=== PATIENT | female | born 1955 | race Caucasian/White ===

== ENCOUNTER 2016-10-04 11:32 | Emergency (ER) | payer OTHER ==
[~2016-10-04] VITALS: Ht 182.9 cm; Wt 113.4 kg
[2016-10-04 11:45] VITALS: BP 122/82
--- NOTE | 2016-10-04 12:09 | NUR ---
XRAY AT BEDSIDE
[2016-10-04] MEDS ORDERED: HYDROCODONE/APAP 5/325MG 1 EACH TABLET PO ONE (12:30)
[2016-10-04] MEDS ORDERED: HYDROCODONE/APAP 5/325MG 1 EACH TABLET ONE (12:37)
== END 2016-10-04 13:24 | disposition home or self-care (01) ==
LOC: ER 11:33
DX: S86.919A Strain of unspecified muscle(s) and tendon(s) at lower leg level, unspecified leg, initial encounter (principal); I10 Essential (primary) hypertension; E66.9 Obesity, unspecified; W01.0XXA Fall on same level from slipping, tripping and stumbling without subsequent striking against object, initial encounter; Y92.89 Other specified places as the place of occurrence of the external cause; Y93.89 Activity, other specified; Y99.8 Other external cause status
CPT/HCPCS: 73564-TC; A4606; Z7610

== ENCOUNTER 2016-12-16 11:04 | Emergency (ER) | payer OTHER ==
[~2016-12-16] VITALS: Ht 182.9 cm; Wt 108.9 kg
[2016-12-16 11:04] VITALS: BP 146/89
[2016-12-16] MEDS ORDERED: NAPROXEN 500 MG TABLET PO SCH (12:00)
[2016-12-16] MEDS ORDERED: NAPROXEN 250 MG TABLET ONE (12:02)
--- NOTE | 2016-12-16 12:09 | NUR ---
PT TO RADIOLOGY FOR L SHOULDER XRAY VIA WHEELCHAIR.
== END 2016-12-16 12:53 | disposition home or self-care (01) ==
LOC: ER 11:05
DX: S46.912A Strain of unspecified muscle, fascia and tendon at shoulder and upper arm level, left arm, initial encounter (principal); I10 Essential (primary) hypertension; W01.0XXA Fall on same level from slipping, tripping and stumbling without subsequent striking against object, initial encounter; Y92.89 Other specified places as the place of occurrence of the external cause; Y93.89 Activity, other specified; Y99.8 Other external cause status
CPT/HCPCS: 73030-TC; A4606; Z7610

== ENCOUNTER 2020-04-11 10:23 | Emergency (ER) | payer OTHER ==
[~2020-04-11] VITALS: Ht 185.4 cm; Wt 117.9 kg
--- NOTE | 2020-04-11 10:31 | NUR ---
ER BED 3 PT BIB SELF. CHIEF COMPLAINT OF R KNEE PAIN. STATED THAT HE "MIGHT HAVE ACCIDENTALLY TWISTED IT THE WRONG WAY WHILE WORKING ON SOME STUFF". VS CHECKED. AWAITING TO BE SEEN BY
[2020-04-11] MEDS ORDERED: IBUPROFEN 600 MG TABLET ONE (10:43)
[2020-04-11] MEDS ORDERED: IBUPROFEN 600 MG TABLET PO ONE (11:00)
--- NOTE | 2020-04-11 11:30 | NUR ---
Patient discharged to home in stable condition. Written and verbal after care instructions given. Patient verbalizes understanding of instruction.
[2020-04-11 11:31] VITALS: BP 117/60
== END 2020-04-11 11:32 | disposition home or self-care (01) ==
LOC: ER 10:32
DX: M25.461 Effusion, right knee (principal); I10 Essential (primary) hypertension; E66.01 Morbid (severe) obesity due to excess calories; Z68.34 Body mass index [BMI] 34.0-34.9, adult
CPT/HCPCS: 73564-TC